=== PATIENT | female | born 1995 | race Two or more races ===

== ENCOUNTER 2021-12-29 07:04 | Day surgery (SDC) | payer OTHER | END 2021-12-29 19:40 | disposition home or self-care (01) | LOC: CIR.AMB 07:04 | PROVIDERS: ATTEND Obstetrics & Gynecology Gynecology | DX: O02.1 Missed abortion (principal); O72.2 Delayed and secondary postpartum hemorrhage; Z20.822 Contact with and (suspected) exposure to COVID-19 ==

== ENCOUNTER 2022-02-16 20:42 | Emergency (ER) | payer OTHER ==
[~2022-02-16] VITALS: Ht 160 cm; Wt 74.8 kg
== END 2022-02-17 00:18 | disposition home or self-care (01) ==
LOC: ER 20:42
DX: N39.0 Urinary tract infection, site not specified (principal)

== ENCOUNTER 2022-08-25 20:41 | Emergency (ER) | payer OTHER ==
[~2022-08-25] VITALS: Ht 160 cm; Wt 74.8 kg
[2022-08-25] MEDS ORDERED: 3-DAY VAGINAL C21 GM VAG (22:26)
[2022-08-25] MEDS ORDERED: DUI500 PO (22:26)
== END 2022-08-25 22:41 | disposition home or self-care (01) ==
LOC: ER 20:41
DX: N39.0 Urinary tract infection, site not specified (principal)

== ENCOUNTER 2022-10-01 18:50 | Emergency (ER) | payer OTHER ==
[~2022-10-01] VITALS: Ht 160 cm; Wt 70.8 kg
[~2022-10-01 18:50] MED LIST: 3-DAY VAGINAL C21 GM VAG; DUI500 PO
== END 2022-10-01 22:56 | disposition home or self-care (01) ==
LOC: ER 18:50
PROVIDERS: General Practice
DX: R53.1 Weakness (principal)